=== PATIENT | female | born 1995 | race African-American/Black ===

== ENCOUNTER 2023-12-22 18:50 | Emergency (ER) | payer MEDICAID ==
[~2023-12-22] VITALS: Ht 170.2 cm; Wt 60.0 kg
[2023-12-22 18:54] VITALS: O2SAT 100
[2023-12-22 18:56] VITALS: BP 111/78; PULSE 78; RESP 18; TEMP 98.5; O2SAT 100
== END 2023-12-22 19:42 | disposition home or self-care (01) ==
LOC: ER 18:50 → EDSEX 18:50 → ER 19:42
DX: R04.0 Epistaxis (principal)
CPT/HCPCS: 99281